=== PATIENT | male | born 1985 | race African-American/Black ===

== ENCOUNTER 2021-09-30 18:12 | Emergency (ER) | payer OTHER ==
[~2021-09-30] VITALS: Ht 185.4 cm; Wt 90.7 kg
[2021-09-30 18:32] LABS: BASOPHILS % (AUTO) 0.2 % (0.0-5.0); HEMATOCRIT 40.9 % (42-54); LYMPHOCYTES % (AUTO) 6.5 % (21.0-51.0); MEAN CORPUSCULAR HEMOGLOBIN 28.5 pg (27.0-33.0); MEAN CORPUSCULAR HGB CONC 33.5 g/dL (32.0-36.0); MEAN CORPUSCULAR VOLUME 85.2 fL (79-99); MONOCYTES % (AUTO) 12.7 % (3.0-13.0); NEUTROPHILS % (AUTO) 80.1 % (40.0-77.0); PLATELET COUNT (AUTO) 254 K/uL (130-400); RED CELL DISTRIBUTION WIDTH 13.2 % (11.0-15.5)
[2021-09-30 18:47] LABS: CREATININE 1.2 mg/dL (0.5-1.5); POTASSIUM 3.9 mmol/L (3.5-5.1)
[2021-09-30 18:55] LABS: ALBUMIN 3.5 g/dL (3.5-5.0); BILIRUBIN,TOTAL 1.4 mg/dL (0.2-1.0); TOTAL PROTEIN, SERUM 7.3 g/dL (6.0-8.3)
[2021-09-30] MEDS ORDERED: 0.9%NACL 1000ML 1,000 ML IV ONE (19:00)
[2021-09-30] MEDS ORDERED: MORPHINE 4 MG SYG IVP ONE (19:00)
[2021-09-30] MEDS ORDERED: FAMOTIDINE 20MG VIAL IV ONE (19:00)
[2021-09-30] MEDS ORDERED: ONDANSETRON 4MG INJ IVP ONE (19:00)
[2021-09-30 19:12] LABS: APPEARANCE,URINE CLEAR (CLEAR); BILIRUBIN,URINE NEGATIVE (NEGATIVE); COLOR,URINE YELLOW (YELLOW); GLUCOSE, URINE (UA) NEGATIVE (NEGATIVE); KETONES,URINE 40 mg/dL (NEGATIVE); LEUKOCYTE ESTERASE ,URINE NEGATIVE (NEGATIVE); NITRATE,URINE NEGATIVE (NEGATIVE); OCCULT BLOOD,URINE SMALL (NEGATIVE); PH,URINE 6.5 (5.0-8.0); PROTEIN,URINE TRACE mg/dL (NEGATIVE)
[2021-09-30 19:18] LABS: AMPHET/METH SCREEN,URINE NEGATIVE (NEGATIVE); BARBITURATE SCREEN, URINE NEGATIVE (NEGATIVE); BENZODIAZEPINES SCREEN,URINE NEGATIVE (NEGATIVE); CANNABINOID SCREEN,URINE POSITIVE (NEGATIVE); COCAINE SCREEN,URINE NEGATIVE (NEGATIVE); OPIATE SCREEN,URINE NEGATIVE (NEGATIVE); PHENCYCLIDINE SCREEN,URINE NEGATIVE (NEGATIVE)
[2021-09-30 19:23] LABS: BACTERIA,URINE Rare /HPF (None Seen); SQUAMOUS EPITHELIAL CELL,UR None Seen /HPF (0-2); WBC,URINE 0-1 /HPF (0-1)
[2021-09-30] MEDS ORDERED: IOHEXOL 350 MG/ML 100ML INFUS..BTL IV ONE (19:38)
[2021-09-30] MEDS ORDERED: CEFTRIAXONE 1G VIAL IVP ONE (21:00)
[2021-09-30] MEDS ORDERED: GUAI120015 PO (21:02)
[2021-09-30] MEDS ORDERED: AZIT500T2 PO (21:02)
[2021-09-30 21:35] VITALS: BP 128/82
== END 2021-09-30 21:37 | disposition home or self-care (01) ==
LOC: EDH 18:12
DX: J18.9 Pneumonia, unspecified organism (principal); Z20.822 Contact with and (suspected) exposure to COVID-19; E78.00 Pure hypercholesterolemia, unspecified; I10 Essential (primary) hypertension; Z79.899 Other long term (current) drug therapy
CPT/HCPCS: 36415; 71045; 74177; 80053; 80305; 81001; 83690; 84484 ×2; 85025; 87635; 93005; 96361; 96374; 96375; 99285; C9803; J0696; J2270; J2405; J3490; J7030; Q9967